=== PATIENT | female | born 1990 | race Caucasian/White ===

== ENCOUNTER 2017-06-20 12:37 | Outpatient (CLI) | payer OTHER ==
[~2017-06-20] VITALS: Ht 172.7 cm; Wt 109.1 kg
[~2017-06-20 12:37] MED LIST: ACET325T14 PO; ASPI-770 PO; CALC200T3 PO; IBUP-1222 PO; OXYC-302 PO; PREN1TAB56 PO
[2017-06-20 13:17] VITALS: BP 118/75
[2017-06-20 13:20] LABS: ASPARTATE AMINO TRANSFERASE 21 U/L (15-37); BLOOD UREA NITROGEN 5 mg/dL (7-18)
[2017-06-20] MEDS ORDERED: METH500T2 PO (13:44)
[2017-06-20] MEDS ORDERED: PREN1TAB60 PO (13:44)
[2017-06-20] MEDS ORDERED: ACET325T14 PO (13:45)
== END 2017-06-20 14:40 | disposition home or self-care (01) ==
LOC: LDOP 12:37
PROVIDERS: ATTEND Obstetrics & Gynecology
DX: O11.3 Pre-existing hypertension with pre-eclampsia, third trimester (principal); O62.9 Abnormality of forces of labor, unspecified; O99.343 Other mental disorders complicating pregnancy, third trimester; F32.9 Major depressive disorder, single episode, unspecified; Z3A.39 39 weeks gestation of pregnancy
CPT/HCPCS: 36415; 59025; 80053; 84550; 85025; 99211; G0463

== ENCOUNTER 2017-06-22 05:52 | Inpatient (IN) | payer OTHER ==
[~2017-06-22] VITALS: Ht 172.7 cm; Wt 109.1 kg
[~2017-06-22 05:52] MED LIST changes: +METH500T2 PO; +PREN1TAB60 PO
[2017-06-22] MEDS ORDERED: AMPICILLIN 2 GM in SODIUM CHLORIDE 0.9% 50 ML IVPB STA (06:08)
[2017-06-22] MEDS ORDERED: OXYTOCIN 30U/ 0.9% NaCL 500ML 500 ML IV ONE (06:08)
[2017-06-22] MEDS ORDERED: OXYTOCIN 30U/ 0.9% NaCL 500ML 500 ML IV PRN (06:08)
[2017-06-22] MEDS ORDERED: NEWBORN KIT ONE (06:23)
[2017-06-22] MEDS ORDERED: SODIUM CITRATE/CITRIC ACID 30 ML UDC PO PRN (06:30)
[2017-06-22] MEDS ORDERED: METOCLOPRAMIDE 5 MG/ML, 2ML IVPush PRN (06:30)
[2017-06-22] MEDS ORDERED: FENTANYL PF 100 MCG/2ML IV PRN (06:30)
[2017-06-22] MEDS ORDERED: ONDANSETRON 2MG/ML, 2ML IVPush PRN (06:30)
[2017-06-22] MEDS ORDERED: CALCIUM CARBONATE 500 MG TAB.CHEW PO PRN (06:30)
[2017-06-22] MEDS ORDERED: FENTANYL PF 100 MCG/2ML IVPush PRN (06:30)
[2017-06-22] MEDS ORDERED: MISOPROSTOL 25 MCG TABLET ONE ×2 (06:40→10:47)
[2017-06-22] MEDS: MISOPROSTOL 25 MCG TABLET VG PRN ×2 (06:53→10:48)
[2017-06-22 07:30] LABS: BLOOD UREA NITROGEN 7 mg/dL (7-18)
[2017-06-22 07:33] LABS: ASPARTATE AMINO TRANSFERASE 18 U/L (15-37)
[2017-06-22] MEDS: AMPICILLIN 1 GM in SODIUM CHLORIDE 0.9% 50 ML IV SCH ×3 (10:30→18:28)
[2017-06-22] MEDS ORDERED: LIDOCAINE 1%, 20ML ONE (10:39)
[2017-06-22] MEDS ORDERED: MISOPROSTOL 200 MCG TABLET ONE (10:39)
[2017-06-22] MEDS ORDERED: OXYTOCIN 30U/ 0.9% NaCL 500ML 500 ML ONE (10:39)
[2017-06-22] MEDS: D5%-LACTATED RINGERS 1,000 ML IV SCH ×2 (12:40→20:40)
[2017-06-22] MEDS: LACTATED RINGERS 1,000 ML IV SCH ×2 (12:43→20:40)
[2017-06-22] MEDS: OXYTOCIN 30U/ 0.9% NaCL 500ML 500 ML IV SCH (20:14)
[2017-06-22] MEDS ORDERED: ONDANSETRON 2MG/ML, 2ML IV PRN (20:30)
[2017-06-22] MEDS ORDERED: METHYLERGONOVINE 0.2 MG/ML IM PRN (20:30)
[2017-06-22] MEDS ORDERED: ACETAMINOPHEN 325 MG TABLET PO PRN (20:30)
[2017-06-22] MEDS ORDERED: MISOPROSTOL 200 MCG TABLET PR PRN (20:30)
[2017-06-22] MEDS ORDERED: OXYcodone/APAP 5/325MG TABLET PO PRN (20:30)
[2017-06-22] MEDS ORDERED: OXYcodone/APAP 5/325MG TABLET ONE (21:13)
[2017-06-22] MEDS ORDERED: IBUPROFEN 600 MG TABLET ONE (21:13)
[2017-06-22] MEDS: IBUPROFEN 600 MG TABLET PO PRN (21:18)
[2017-06-22 22:10] VITALS: BP 126/77
[2017-06-23 00:25] VITALS: BP 113/68
[2017-06-23] MEDS: LACTATED RINGERS 1,000 ML IV SCH ×3 (04:40→20:40)
[2017-06-23] MEDS: D5%-LACTATED RINGERS 1,000 ML IV SCH ×3 (04:40→20:40)
[2017-06-23] MEDS: OXYTOCIN 30U/ 0.9% NaCL 500ML 500 ML IV SCH ×2 (06:14→16:14)
[2017-06-23] MEDS: OXYcodone/APAP 5/325MG TABLET PO PRN ×4 (06:50→21:43)
[2017-06-23] MEDS: IBUPROFEN 600 MG TABLET PO PRN ×3 (06:50→21:42)
[2017-06-23 07:45] VITALS: BP 126/76
[2017-06-23 08:05] VITALS: BP 135/83
[2017-06-23] MEDS: DOCUSATE 100 MG CAPSULE PO PRN ×2 (08:42→21:42)
[2017-06-23] MEDS: PRENATAL VIT/IRON/FA 1 EACH TABLET PO SCH (08:42)
[2017-06-23 11:30] VITALS: BP 126/76
[2017-06-23 20:00] VITALS: BP 132/84
[2017-06-24 00:05] VITALS: BP 124/81
[2017-06-24] MEDS: OXYTOCIN 30U/ 0.9% NaCL 500ML 500 ML IV SCH (02:14)
[2017-06-24] MEDS: LACTATED RINGERS 1,000 ML IV SCH (04:40)
[2017-06-24] MEDS: D5%-LACTATED RINGERS 1,000 ML IV SCH (04:40)
[2017-06-24] MEDS: OXYcodone/APAP 5/325MG TABLET PO PRN ×2 (05:09→09:12)
[2017-06-24] MEDS: IBUPROFEN 600 MG TABLET PO PRN (05:09)
[2017-06-24 06:55] VITALS: BP 122/76
[2017-06-24] MEDS: PRENATAL VIT/IRON/FA 1 EACH TABLET PO SCH (09:12)
[2017-06-24] MEDS: DOCUSATE 100 MG CAPSULE PO PRN (09:12)
[2017-06-24] MEDS ORDERED: OXYC-302 PO (10:21)
[2017-06-24] MEDS ORDERED: IBUP-1222 PO (10:21)
== END 2017-06-24 11:10 | disposition home or self-care (01) | DRG 774 ==
LOC: LDIP 05:52 → 2NW 22:01
PROVIDERS: ADMIT Obstetrics & Gynecology; ATTEND Obstetrics & Gynecology
PROC: 10E0XZZ Delivery of Products of Conception, External Approach (ICD-10-PCS; principal; 2017-06-22)
PROC: 10907ZC Drainage of Amniotic Fluid, Therapeutic from Products of Conception, Via Natural or Artificial Opening (ICD-10-PCS; 2017-06-22)
DX: O11.4 Pre-existing hypertension with pre-eclampsia, complicating childbirth (principal); O10.92 Unspecified pre-existing hypertension complicating childbirth; Z37.0 Single live birth; O99.824 Streptococcus B carrier state complicating childbirth; Z3A.39 39 weeks gestation of pregnancy
CPT/HCPCS: 36415; 80053; 82248; 84550; 85025; 86850; 86900; 86923; J0290; J7120

== ENCOUNTER → 2020-11-13 | Outpatient (CLI) | payer OTHER, MEDICAID ==
[~2020-11-13] MED LIST changes: +ASPI-515 PO; -ASPI-770 PO; +ASPI81TA59 PO; +CLOP75TA PO; +METH500T11 PO; -METH500T2 PO; +METH500T7 PO; +PRAV80TA2 PO
== END | disposition home or self-care (01) ==
LOC: STAR 10:28
PROVIDERS: ATTEND Anesthesiology
DX: Z20.828 Contact with and (suspected) exposure to other viral communicable diseases (principal)
CPT/HCPCS: 87635